=== PATIENT | male | born 1995 | race Caucasian/White ===

== ENCOUNTER 2017-04-22 21:37 | Emergency (ER) | payer OTHER ==
[2017-04-22] MEDS ORDERED: NS 0.9% 1000 ML* 2,000 ML IV ONE (22:33)
[2017-04-22] MEDS ORDERED: Ketorolac INJ* 30 MG/ML 1 ML VIAL IV ONE (22:33)
[2017-04-22 23:07] LABS: Hematocrit 50 % (42-52); Hemoglobin 16.9 g/dl (14.0-18.0); Mean Corpuscular HGB Conc 34 g/dl (31-36); Mean Corpuscular Hemoglobin 30 pg (27-31); Mean Corpuscular Volume 90 fL (80-94); Mean Platelet Volume 9 um3 (7.4-10.4); Red Blood Count 5.61 10^6/ul (4.0-5.4); Red Cell Distribution Width 14 % (10.5-15); White Blood Count 16.4 10^3/ul (3.5-10.8)
[2017-04-22 23:11] LABS: Benzodiazepine Urine Screen None Detected (None Detect)
[2017-04-22 23:13] LABS: Urine Bilirubin Negative (Negative); Urine Glucose Negative (Negative); Urine Nitrite Negative (Negative)
[2017-04-22 23:18] LABS: Albumin 4.9 g/dL (3.2-5.2); Calcium 9.5 mg/dL (8.6-10.3); EGFR African American 147.3 (>60); EGFR Non-African American 114.6 (>60); Globulin 3.3 g/dL (2-4); Potassium 3.8 mmol/L (3.5-5.0); Total Bilirubin 0.7 mg/dL (0.2-1.0); Total Protein 8.2 g/dL (6.4-8.9)
[2017-04-22] MEDS ORDERED: Iohexol 300* (CONTRAST) 10 ML SDV IV ONE (23:54)
[2017-04-23] MEDS ORDERED: Diazepam TAB(*) 5 MG PO ONE (01:27)
[2017-04-23] MEDS ORDERED: Morphine INJ* 4 MG/ML 1 ML CARPUJECT IV ONE (01:28)
[2017-04-23] MEDS ORDERED: Ondansetron INJ* 2 MG/ML VIAL IV ONE (01:36)
--- NOTE | 2017-04-23 02:11 | ED ---
Arpan [place] Rebecca, scribed for Kieran Palacio MD on 04/22/17 at 2220 . Back Pain - HPI Summary HPI Summary: Pt is a 21 y/o M who presents to ED c/o lumbar back pain. Pt fell out of a first floor window, about 10-12 feet high, today at approximately 1530, landing on both feet. Pt immediately experienced a "searing" pain in his back. Negative LOC and head trauma. He proceeded to sleep for about 5 hours "without moving" and the pain is now improved from how it was previously. Pain is currently moderate, ranked 6/10. Sx aggravated by pressure, walking and standing, alleviated by nothing. Denies any pain in his heels, knees, hips, abdomen, head and chest. Denies hematuria and vomiting. - History of Current Complaint Chief Complaint: EDBackInjuryPain Stated Complaint: BACK PAIN Time Seen by Provider: 04/22/17 22:12 Hx Obtained From: Patient Onset/Duration: Lasting Hours, Still Present Back Pain Location: Is Discrete @ - Lumbar back Severity Currently: Moderate Pain Intensity: 6 Pain Scale Used: 0-10 Numeric Character: Sharp - "searing" Aggravating Symptom(s): Walking Alleviating Symptom(s): Nothing Associated Signs And Symptoms: Positive: Negative. Negative: Abdominal Pain - Allergies/Home Medications Allergies/Adverse Reactions: Allergies Allergy/AdvReac Type Severity Reaction Status Date / Time No Known Allergies Allergy Verified 04/22/17 21:43 PMH/Surg Hx/FS Hx/Imm Hx Previously Healthy: Yes Endocrine/Hematology History: Denies: Hx Diabetes Cardiovascular History: Denies: Hx Coronary Artery Disease Infectious Disease History: No Infectious Disease History: Denies: Traveled Outside the [place] in Last 30 Days - Family History Known Family History: Negative: Cardiac Disease, Hypertension, Diabetes - Social History Occupation: Student Substance Use Type: Reports: Marijuana Smoking Status (MU): Current Some Day Smoker Review of Systems Negative: Chest Pain Negative: Abdominal Pain, Vomiting Negative: hematuria Positive: Other - Lumbar back pain NEGATIVE: Heel, knee, hip and head pain Neurological: Other - NEGATIVE: LOC All Other Systems Reviewed And Are Negative: Yes Physical Exam - Summary Physical Exam Summary: The patient is well-nourished in no acute distress and in no acute pain. The skin is warm, diaphoretic and skin color reflects adequate perfusion. HEENT: The head is normocephalic and atraumatic with no signs of any basilar skull fracture. No thomas sign or raccoon sign. No evidence of facial trauma. The pupils are equal and reactive. The conjunctivae are clear and without drainage. Nares are patent and without drainage. Mouth reveals moist mucous membranes and the throat is without erythema and exudate. The external ears are intact. The ear canals are patent and without drainage. The tympanic membranes are intact with no hemotympanum. Neck is supple with full range of motion and non-tender. There are no carotid bruits. There is no neck vein distension. Respiratory: Chest is non-tender. Lungs are clear to auscultation and breath sounds are symmetrical and equal. Cardiovascular: Hear is regular rate and rhythm. There is no murmur or rub auscultated. There is no peripheral edema and pulses are symmetrical and equal. The chest is atraumatic. Abdomen: The abdomen is soft and non-tender. There are normal bowel sounds heard in all four quadrants and there is no organomegaly palpated. Musculoskeletal: No reproducible pain over the spinous processes of the C-spine with no deformity. He has no tenderness over his ribs, abdomen and chest. Clavicles are intact. He has no tenderness in the hips or pelvis and no tenderness in the knees bilaterally. Negative NIYA in both hips. Negative straight leg raise on the lower legs with no tenderness in his calcaneus bilaterally. He is nontender in the tibia-fibula area bilaterally. He has got pain with plantar flexion of his feet and no pain with dorsiflexion. Marked tenderness in his lumbar spine at approximately L3-L4 with no tenderness at T12- L1. There is good capillary refill. There is no peripheral edema or calf tenderness elicited. Neurological: Patient is alert and oriented to person, place and time. The patient has symmetrical motor strength in all four extremities. Cranial nerves are grossly intact. Deep tendon reflexes are symmetrical and equal in all four extremities. He has good light touch sensation and deep tendon reflexes are 2+ about the Achilles and patella. Psychiatric: The patient has an appropriate affect and does not exhibit any anxiety or depression. Triage Information Reviewed: Yes Vital Signs On Initial Exam: Initial Vitals Temp Pulse Resp BP Pulse Ox 98.2 F 107 16 116/65 99 04/22/17 21:45 04/22/17 21:45 04/22/17 21:45 04/22/17 21:45 04/22/17 21:45 Vital Signs Reviewed: Yes Diagnostics - Vital Signs Vital Signs Temp Pulse Resp BP Pulse Ox 04/22/17 21:45 98.2 F 107 16 116/65 99 - Laboratory Lab Results: Lab Results 04/22/17 04/22/17 04/22/17 Range/Units 22:35 22:35 22:38 WBC 16.4 H (3.5-10.8) 10^3/ul RBC 5.61 H (4.0-5.4) 10^6/ul Hgb 16.9 (14.0-18.0) g/dl Hct 50 (42-52) % MCV 90 (80-94) fL MCH 30 (27-31) pg MCHC 34 (31-36) g/dl RDW 14 (10.5-15) % Plt Count 222 (150-450) 10^3/ul MPV 9 (7.4-10.4) um3 Neut % (Auto) 81.2 (38-83) % Lymph % (Auto) 9.6 L (25-47) % [place] % (Auto) 8.8 (1-9) % Eos % (Auto) 0.2 (0-6) % Baso % (Auto) 0.2 (0-2) % Absolute Neuts (auto) 13.3 H (1.5-7.7) 10^3/ul Absolute Lymphs (auto) 1.6 (1.0-4.8) 10^3/ul Absolute Monos (auto) 1.4 H (0-0.8) 10^3/ul Absolute Eos (auto) 0 (0-0.6) 10^3/ul Absolute Basos (auto) 0 (0-0.2) 10^3/ul Absolute Nucleated RBC 0.01 10^3/ul Nucleated RBC % 0 Sodium (133-145) mmol/L Potassium (3.5-5.0) mmol/L Chloride (101-111) mmol/L Carbon Dioxide (22-32) mmol/L Anion Gap (2-11) mmol/L BUN (6-24) mg/dL Creatinine (0.67-1.17) mg/dL Est GFR ( Amer) (>60) Est GFR (Non-Af Amer) (>60) BUN/Creatinine Ratio (8-20) Glucose (70-100) mg/dL Calcium (8.6-10.3) mg/dL Total Bilirubin (0.2-1.0) mg/dL AST (13-39) U/L ALT (7-52) U/L Alkaline Phosphatase (34-104) U/L Total Protein (6.4-8.9) g/dL Albumin (3.2-5.2) g/dL Globulin (2-4) g/dL Albumin/Globulin Ratio (1-3) Urine Color Yellow Urine Appearance Turbid Urine pH 5.0 (5-9) Ur Specific [place] 1.031 H (1.010-1.030) Urine Protein Negative (Negative) Urine Ketones 1+ H (Negative) Urine Blood Negative (Negative) Urine Nitrate Negative (Negative) Urine Bilirubin Negative (Negative) Urine Urobilinogen Negative (Negative) Ur Leukocyte Esterase Negative (Negative) Urine Glucose Negative (Negative) Urine Opiates Screen None detected (None Detect) Ur Barbiturates Screen None detected (None Detect) Ur Phencyclidine Scrn None detected (None Detect) Ur Amphetamines Screen None detected (None Detect) U Benzodiazepines Scrn None detected (None Detect) Urine Cocaine Screen None detected (None Detect) U Cannabinoids Screen Presumptive positive H (None Detect) Serum Alcohol (<10) mg/dL 04/22/17 Range/Units 22:38 WBC (3.5-10.8) 10^3/ul RBC (4.0-5.4) 10^6/ul Hgb (14.0-18.0) g/dl Hct (42-52) % MCV (80-94) fL MCH (27-31) pg MCHC (31-36) g/dl RDW (10.5-15) % Plt Count (150-450) 10^3/ul MPV (7.4-10.4) um3 Neut % (Auto) (38-83) % Lymph % (Auto) (25-47) % [place] % (Auto) (1-9) % Eos % (Auto) (0-6) % Baso % (Auto) (0-2) % Absolute Neuts (auto) (1.5-7.7) 10^3/ul Absolute Lymphs (auto) (1.0-4.8) 10^3/ul Absolute Monos (auto) (0-0.8) 10^3/ul Absolute Eos (auto) (0-0.6) 10^3/ul Absolute Basos (auto) (0-0.2) 10^3/ul Absolute Nucleated RBC 10^3/ul Nucleated RBC % Sodium 140 (133-145) mmol/L Potassium 3.8 (3.5-5.0) mmol/L Chloride 105 (101-111) mmol/L Carbon Dioxide 25 (22-32) mmol/L Anion Gap 10 (2-11) mmol/L BUN 12 (6-24) mg/dL Creatinine 0.86 (0.67-1.17) mg/dL Est GFR ( Amer) 147.3 (>60) Est GFR (Non-Af Amer) 114.6 (>60) BUN/Creatinine Ratio 14.0 (8-20) Glucose 87 (70-100) mg/dL Calcium 9.5 (8.6-10.3) mg/dL Total Bilirubin 0.70 (0.2-1.0) mg/dL AST 27 (13-39) U/L ALT 22 (7-52) U/L Alkaline Phosphatase 75 (34-104) U/L Total Protein 8.2 (6.4-8.9) g/dL Albumin 4.9 (3.2-5.2) g/dL Globulin 3.3 (2-4) g/dL Albumin/Globulin Ratio 1.5 (1-3) Urine Color Urine Appearance Urine pH (5-9) Ur Specific [place] (1.010-1.030) Urine Protein (Negative) Urine Ketones (Negative) Urine Blood (Negative) Urine Nitrate (Negative) Urine Bilirubin (Negative) Urine Urobilinogen (Negative) Ur Leukocyte Esterase (Negative) Urine Glucose (Negative) Urine Opiates Screen (None Detect) Ur Barbiturates Screen (None Detect) Ur Phencyclidine Scrn (None Detect) Ur Amphetamines Screen (None Detect) U Benzodiazepines Scrn (None Detect) Urine Cocaine Screen (None Detect) U Cannabinoids Screen (None Detect) Serum Alcohol 11 H (<10) mg/dL Result Diagrams: 04/22/17 22:38 04/22/17 22:38 Lab Statement: Any lab studies that have been ordered have been reviewed, and results considered in the medical decision making process. - CT CT L-Spine CT Interpretation: Positive (See Comments) - There is a burst fracture of L5 with exam loss of height anteriorly and 30% loss of height posteriorly. There is moderate retropulsion and moderate central canal narrowin. No involvement of the posterior elements. No other fractures identified. There is a mild bilateral retroperitoneal edema but no retroperitoneal hematoma. ED physician reviewed this radiology report and agrees. CT Interpretation Completed By: Radiologist CT T-Spine CT Interpretation: No Acute Changes - Normal thoracic spine. ED physician reviewed radiology report and agrees. CT Interpretation Completed By: Radiologist CT Chest/Abd/Pel CT Interpretation: Positive (See Comments) - 3 column fracture of L5 with retropulsion and moderate central canal narrowing, which may be unstable. Orthopedic or neurosurgical consultation is suggested. No viscerabl injury in the chest, abdomen or pelvis. ED physician reviewed radiology report and agree. CT Interpretation Completed By: Radiologist Re-Evaluation - Re-Evaluation First Eval Re-Evaluation Time: 01:38 Comment: The patient denies any numbness or weakness, but reports that he is in significant pain. Discussed CT results. Second Eval Re-Evaluation Time: 02:04 Comment: Discussed plan to trnasfer and pt will contact his father. Back Pain Course/Dx - Course Assessment/Plan: Pt is a 21 y/o M who presents to ED c/o lumbar back pain. Pt fell out of a first floor window, about 10-12 feet high, today at approximately 1530, landing on both feet. Pt immediately experienced a "searing" pain in his back. Negative LOC and head trauma. He proceeded to sleep for about 5 hours "without moving" and the pain is now improved from how it was previously. Pain is currently moderate, ranked 6/10. Sx aggravated by pressure, walking and standing, alleviated by nothing. Denies any pain in his heels, knees, hips, abdomen, head and chest. Denies hematuria and vomiting. CT T-Spine reveals no acute findings. CT Abd/Pel reveals "3 column fracture of L5 with retropulsion and moderate central canal narrowing, which may be unstable. Orthopedic or neurosurgical consultation is suggested. No viscerabl injury in the chest, abdomen or pelvis." CT L-Spine reveals "There is a burst fracture of L5 with exam loss of height anteriorly and 30% loss of height posteriorly. There is moderate retropulsion and moderate central canal narrowin. No involvement of the posterior elements. No other fractures identified. There is a mild bilateral retroperitoneal edema but no retroperitoneal hematoma." IN the ED course, pt received Valium, Morphine, Toradol, Zofran and fluids. Discussed care of pt with [facility] who accepts pt for transfer with the accepting physician being Sharita Abrams. The pt will be trnafserred to [facility] with a Dx of Burst fracture of L5. He understands and agrees. - Diagnoses Differential Diagnosis/HQI/PQRI: Positive: Compressive Cord Syndrome, Fracture, Other - unstable lumbar fracture Provider Diagnoses: Burst fracture of lumbar vertebra - Provider Notifications Discussed Care Of Patient With: [facility] Time Discussed With Above Provider: 01:50 Instructed by Provider To: Other - Physician Sharita Abrams accepts pt for transfer to [facility] - Critical Care Time Critical Care Time: 30-74 min - 30 minutes Discharge - Discharge Plan Condition: Stable Disposition: TRANS HIGHER LVL OF CARE FAC Referrals: [facility] [Primary Care Provider] - The documentation as recorded by the Arpan hawthorne Rebecca accurately reflects the service I personally performed and the decisions made by , Kieran Palacio MD.
[2017-04-23 02:47] VITALS: BP 122/81
--- NOTE | 2017-04-23 12:30 | RAD ---
NDICATION: 10 foot fall. Trauma to back. COMPARISON: No relevant prior exams available on the [facility] PACS for comparison. TECHNIQUE: Multidetector CT images were obtained from the lung apices to the ischial tuberosities with 97 mL Omnipaque 300 IV contrast. No oral contrast administered limiting assessment of the alimentary tract. Multiplanar reformation including bone algorithm images of the thoracic and lumbar sacral spine. CHEST REPORT: Clear lungs and pleural spaces. Negative for pneumothorax. Small volume of residual thymic tissue visualized at the anterior mediastinum. No mediastinal hematoma evident. Unremarkable thoracic aorta accounting for motion artifact. Negative for cardiomegaly or pericardial effusion. Negative for thoracic lymphadenopathy. Negative for sternal, rib, or thoracic spine fracture or malalignment. Preserved disc spaces. Negative for periosseous hematoma. CHEST IMPRESSION: 1. No evidence for traumatic visceral injury of the thorax. 2. No evidence for thoracic spine fracture or other traumatic thoracic osseous injury. ABDOMEN PELVIS REPORT: The liver, gallbladder, pancreas, and spleen are unremarkable. Negative for CT abnormality of the upper GI, small bowel, appendix, or colon. Negative for ascites, free air, hernias. Normal adrenal glands. Unremarkable kidneys with symmetric contrast excretion. No abnormality along the course of the nondilated ureters. Unremarkable largely decompressed urinary bladder. Unremarkable visualized male urogenital structures. Negative for lymphadenopathy. Normal diameter abdominal aorta and iliac arteries. Physiologic distention of the IVC. Anterior and middle column comminuted compression fracture of L5 with approximate 50% loss of height. Up to 3 mm dorsal bulging of the middle column with resulting moderately severe central canal stenosis. Associated nondisplaced fracture involving the RIGHT spinal lamina and junction with the spinous process consistent with 3 column fracture. Mild associated periosseous hematoma anteriorly and laterally with resulting mild anterior displacement of the overlying aortic and inferior vena cava bifurcation and extension along the common and internal iliac vessels. No additional lumbar sacral spine fracture evident. ABDOMEN PELVIS IMPRESSION: 1. Comminuted and compression fracture of L5 with approximate 50% loss of height. Up to 3 mm dorsal bulging of the middle column with resulting moderately severe central canal stenosis. Associated nondisplaced fracture involving the RIGHT spinal lamina and junction with the spinous process. 3 column fracture. Mild associated periosseous hematoma anteriorly and laterally with resulting mild anterior displacement of the overlying aortic and inferior vena cava bifurcation and extension along the common and internal iliac vessels. 2. No abdominal pelvic solid or hollow visceral injury evident.
== END 2017-04-23 02:46 | disposition short-term general hospital (02) ==
LOC: ED 21:37
DX: S32.051A Stable burst fracture of fifth lumbar vertebra, initial encounter for closed fracture (principal); W13.4XXA Fall from, out of or through window, initial encounter; Y92.9 Unspecified place or not applicable; F17.200 Nicotine dependence, unspecified, uncomplicated
CPT/HCPCS: 36415; 71260; 72128; 72131; 74177; 80053; 80307; 80320; 81003; 85025; 96360; 96374; 96375; 99283; A9270-GY; G0480; J1885; J2270; Q9967